=== PATIENT | male | born 1980 | race Caucasian/White ===

== ENCOUNTER 2017-09-14 18:42 | Emergency (ER) | payer SELFPAY ==
--- NOTE | 2017-09-14 20:31 | UC ---
Complaint Male HPI - HPI Summary HPI Summary: C/O bilateral testicular pain since yesterday. Father with a history of testicular cancer. ? vericocele. - History of Current Complaint Chief Complaint: [facility]CGU Stated Complaint: PERSONAL Time Seen by Provider: 09/14/17 20:25 Hx Obtained From: Patient Onset/Duration: Gradual Onset - yesterday around noon., Still Present Timing: Constant Severity Initially: Moderate Severity Currently: Moderate Location: Testicle Character: Constant Pressure Aggravating Factor(s): Palpation Alleviating Factor(s): Meds Associated Signs And Symptoms: Negative: Diaphoresis, Fever, Hematuria, Dysuria , Blood in Stool, Rectal Pain, Penile Discharge - Risk Factors Testicular Torsion: Negative - Allergies/Home Medications Allergies/Adverse Reactions: Allergies Allergy/AdvReac Type Severity Reaction Status Date / Time No Known Allergies Allergy Verified 09/14/17 20:22 Home Medications: Home Medications Sertraline* [Zoloft*] 100 mg PO BEDTIME 09/14/17 [History Confirmed 09/14/17] PMH/Surg Hx/FS Hx/Imm Hx Previously Healthy: Yes - Surgical History Surgical History: Yes Surgery Procedure, Year, and Place: GANGLION CYSTS REMOVED - Family History Known Family History: Positive: Diabetes Negative: Cardiac Disease, Hypertension - Social History Occupation: Employed Full-time Lives: With Family - GF Alcohol Use: Rare Substance Use Type: None Substance Use Comment - Amount & Last Used: HX OF OPIATE USE 4 YRS AGO Smoking Status (MU): Current Every Day Smoker Type: Cigarettes Amount Used/How Often: 1/2 PPD Length of Time of Smoking/Using Tobacco: 15 YRS Cessation Counseling: Patient Advised to Stop Review of Systems Is Patient Immunocompromised?: No All Other Systems Reviewed And Are Negative: Yes Physical Exam Triage Information Reviewed: Yes Appearance: Well-Appearing, Well-Nourished, Pain Distress - mild pain with movement Vital Signs: Initial Vital Signs Temp 98.6 F 09/14/17 20:14 Pulse 84 09/14/17 20:14 Resp 16 09/14/17 20:14 BP 147/88 09/14/17 20:14 Pulse Ox 100 09/14/17 20:14 Vital Signs Reviewed: Yes Eyes: Positive: Conjunctiva Clear Neck exam: Normal Respiratory Exam: Normal Cardiovascular Exam: Normal Abdomen Description: Positive: Other: - Bilateral testicular epididymitis tenderness. No masses. Musculoskeletal Exam: Normal Neurological Exam: Normal Psychological Exam: Normal Skin Exam: Normal Complaint Male Course/Dx - Differential Dx/Diagnosis Differential Diagnosis/HQI/PQRI: Epididymitis, Prostatitis, Testicular Torsion, Urinary Tract Infection Provider Diagnoses: Bilateral epididymitis Discharge - Discharge Plan Condition: Stable Disposition: HOME Prescriptions: DOXYcycline CAP(*) [DOXYcycline 100MG CAP(*)] 100 mg PO BID #20 cap Patient Education Materials: Epididymitis (ED), Doxycycline (By mouth) Referrals: No Primary Care Phys,NOPCP [Primary Care Provider] - Additional Instructions: Smoking Cessation Tricks. 1. Cut down by 1 cigarette per day every 2-3 days. Write the number of smokes for that day on the calendar. 2. Identify triggers to smoking: after meals, on the phone, in the car, with coffee, on breaks at work, etc. 3. Formulate a plan with a behavior to replace the smoking. Fireballs in the car , doodle pad on the phone, flavored creamer for the coffee, go for a walk after a meal or on break at work. 4. For stress smokes do deep breathing relaxation. Breath deep in through the nose hold the breath in for a few seconds then breath out slowly through the mouth.
[2017-09-14] MEDS ORDERED: DOXYcycline CAP(*) 100 MG PO ONE (20:40)
== END 2017-09-14 20:56 | disposition home or self-care (01) ==
LOC: UCCORT 18:42
DX: N45.1 Epididymitis (principal); Z80.43 Family history of malignant neoplasm of testis; Z72.0 Tobacco use; F11.11 Opioid abuse, in remission
CPT/HCPCS: 87491; 87591; 99201; A9270-GY; G0463